=== PATIENT | male | born 1970 | race Caucasian/White ===

== ENCOUNTER → 2017-08-24 10:03 | Outpatient (CLI) | payer MEDICAID ==
[2010-11-07 20:33] VITALS: BMI 28.5
[~2017-08-24 10:03] MED LIST: CHANTIX 1 MG TAB1 MG PO; HYZAAR 100-12.51 TAB PO; IBUPROFEN400 MG PO; KLONOPIN1 MG PO; MELATONIN10 M1 PO; MULTI-DAY VITAM1 TAB PO; NAPROSYN500 MG PO; PERCOCET 10/3251 TA1 PO; TYLENOL W/CODEI1 TAB PO; ULTRAM50 MG PO; ZANAFLEX4 MG PO
[2017-09-24 08:06] VITALS: BMI 27.6
== END | disposition home or self-care (01) ==
LOC: D.RAD 10:03
DX: M25.512 Pain in left shoulder (principal)

== ENCOUNTER 2017-09-24 07:20 | Day surgery (SDC) | payer MEDICAID ==
[2017-09-23 15:10] LABS: HEMATOCRIT 38.5 % (42.0-54.0); HEMOGLOBIN 13.3 g/dL (13.5-17.5); MCH 31.5 pg (26.0-34.0); MCHC 34.5 g/dL (31.0-37.0); MCV 91.2 fL (80.0-100.0); MEAN PLATELET VOLUME 11.6 fL (7.4-10.4); RBC 4.22 10x6/uL (4.20-6.10); RDW 13.3 % (11.5-14.5); WBC 8.5 10x3/uL (4.8-10.8)
[~2017-09-24] VITALS: Ht 177.8 cm; Wt 87.1 kg
--- NOTE | ~2017-09-24 | OP ---
PATIENT NAME: KAMILLA IZAGUIRRE MEDICAL RECORD: [id number] :66 [facility] DATE: SURGEON: NURIS FOWLER MD DATE OF OPERATION: 09/24/2017 PREOPERATIVE DIAGNOSES: 1. 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 2. Impingement syndrome. POSTOPERATIVE DIAGNOSES: 1. 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 2. Impingement syndrome. PROCEDURES: 1. Arthroscopic Bankart repair, left shoulder. 2. Subacromial decompression with acromioplasty and bursectomy. SURGEON: Nuris Fowler MD ANESTHESIA: General. INTRAOPERATIVE COMPLICATIONS: None. SUMMARY OF PATHOLOGIC FINDINGS: The patient had mostly an ALPSA type lesion with a small component that was bony. The patient also had a Hill-Sachs lesion with full thickness chondral defect in the posterior aspect of the humeral head. There was no rotator cuff tearing that I could see on either side of the joint. There were some attritional changes from what appeared to be a longstanding impingement. INDICATIONS: The patient is a 47-year-old gentleman who had sustained a shoulder dislocation while playing with his kids. Nonoperative management failed to return his shoulder stability. MRIs were taken and given the Bankart lesion, decision was made to carry on with Bankart repair. OPERATIVE SUMMARY IN DETAIL: After obtaining the appropriate preoperative orthopedic surgery consent as well as anesthetic consultation, evaluation and clearance, the patient was brought to the operating room and placed on operating table in supine position. After general laryngeal mask was administered, the patient was placed in the right lateral decubitus position. All pressure points were well padded to include down leg peroneal pad as well as axillary roll. The patient was held firmly to the operating table using the vacuum pack suction system. Left upper extremity and shoulder were then prepped and draped in routine sterile fashion. The arm was held in the Arthrex traction boom at 30 degrees of forward flexion, 30 degrees of abduction, and 10 pounds of traction laterally. Arthroscopy was established in the glenohumeral joint from posterior portal. Anterior portal was established in the anterior safe interval. Diagnostic arthroscopy did reveal the patient to have the Bankart lesion as described above. Combination of the resector as well as the arthroscopic periosteal elevator was utilized to tease the anterior labrum off the neck and mobilized this. The Arthrex percutaneous system was then used. The first drill hole was made at approximately the 8 to 8:30 position. FiberTape was then looped around the labrum with portions of the capsule using the arthroscopic lasso from Arthrex. A 2.9 PushLock was then inserted in the lowest portion with a good labral repair with capsular plication. The first was at the 7:30 OPERATIVE REPORT [id number] ZINAKAMILLA position. The same thing was repeated 2 more times at the 8:30 and 9 o'clock position while imbricating the capsule and fixing the labrum with a good bumper effect. Having completed this, a stitch was placed through the middle glenohumeral ligament and then through the tissue just beneath the labrum. A #2 FiberWire was then tied for further capsular imbrication. Having completed this, attention was turned to the subacromial space. While in the subacromial space, the coracoacromial ligament was noted to have excoriation. Undersurface of the acromion was then denuded of all soft tissue and the coracoacromial ligament was released. A 5-0 barrel bur was used to perform acromioplasty at the level of acromioclavicular joint. Next, attention was turned to the rotator cuff. Some attritional rotator cuff changes were noted, but no full thickness tearing was seen. At this point, arthroscopy portals were closed in routine interrupted fashion using 4-0 Prolene. Sterile dressings were applied. The patient was awakened and taken to recovery room in stable condition. All final needle and sponge counts were correct. TRANSINT:[id number] Voice Confirmation ID: [id number] DOCUMENT ID: [id number] JANETH MARTINEZ, NURIS GIBSON at 0802 CC: [id number] DICTATION DATE: 09/24/17 1112 MARINE STE[employer] FITTER HELPER: 09/24/17 1233 [facility] 09/24/17 [id number] [place] [address]
[~2017-09-24 07:20] MED LIST changes: -PERCOCET 10/3251 TA1 PO
[2017-09-24 08:06] VITALS: BP 137/90; Ht 177.8 cm; Wt 87.1 kg
[2017-09-24] MEDS ORDERED: PERCOCET 10/3251 TA1 PO (11:02)
== END 2017-09-24 13:20 | disposition home or self-care (01) ==
LOC: D.OPS 07:20 → D.PAN 10:15 → D.OPS 11:10 → D.PAN 12:00 → D.OPS 12:00
PROVIDERS: Anesthesiology
DX: M25.312 Other instability, left shoulder (principal); M75.42 Impingement syndrome of left shoulder; Z01.812 Encounter for preprocedural laboratory examination

== ENCOUNTER 2018-03-14 18:56 | Emergency (ER) | payer MEDICAID ==
[~2018-03-14] VITALS: Ht 180.3 cm; Wt 81.4 kg
[~2018-03-14 18:56] MED LIST changes: +PERCOCET 10/3251 TA1 PO
[2018-03-14 19:00] VITALS: Ht 180.3 cm; Wt 81.4 kg
[2018-03-14] MEDS ORDERED: FEXOFENADINE H180 MG PO (19:23)
[2018-03-14] MEDS ORDERED: ZOLOFT100 MG PO (19:23)
[2018-03-14 19:40] LABS: BASOPHILS 0.3 % (0-2); EOSINOPHILS 1.7 % (0-7); HEMATOCRIT 39.8 % (42.0-54.0); HEMOGLOBIN 13.7 g/dL (13.5-17.5); IMMATURE GRANULOCYTES 0.3 % (0-5); LYMPHOCYTES 30.4 % (15-50); MCH 32.2 pg (26.0-34.0); MCHC 34.4 g/dL (31.0-37.0); MCV 93.6 fL (80.0-100.0); MEAN PLATELET VOLUME 11.5 fL (7.4-10.4); MONOCYTES 9.6 % (2-11); NEUTROPHILS 57.7 % (40-80); PLATELET COUNT 209 10x3/uL (130-400); RBC 4.25 10x6/uL (4.20-6.10); RDW 13.2 % (11.5-14.5); WBC 11.4 10x3/uL (4.8-10.8)
[2018-03-14 19:53] LABS: ALBUMIN 4.1 g/dL (3.4-5.0); ALKALINE PHOSPHATASE 69 U/L (46-116); ALT (SGPT) 26 U/L (10-68); BILIRUBIN - TOTAL 0.28 mg/dL (0.2-1.3); CALC OSMOLALITY 280 mosm/kg (275-300); CALCIUM 8.7 mg/dL (8.5-10.1); CHLORIDE - SERUM 102 mmol/L (98-107); CREATININE - SERUM 0.8 mg/dL (0.6-1.3); GLUCOSE 110 mg/dL (74-106); POTASSIUM - SERUM 3.4 mmol/L (3.5-5.1); PROTEIN - SERUM 7.3 g/dL (6.4-8.2); SODIUM 140 mmol/L (136-145); UREA NITROGEN 15 mg/dL (7-18); eGFR NON AFRICAN AMERICAN > 90 mL/min (90-120)
[2018-03-14 20:06] LABS: AMYLASE - SERUM 94 U/L (25-115); CKMB 1.2 U/L (0.0-3.6); CREATINE KINASE 128 UL (21-232); LIPASE 450 U/L (73-393); PRO BNP 40 pg/mL (0-125); THYROID STIMULATING HORMONE 0.92 uIU/mL (0.36-3.74)
[2018-03-14 20:13] LABS: TROPONIN-I < 0.017 ng/mL (0.000-0.060)
[2018-03-14 22:19] VITALS: BP 132/77
== END 2018-03-14 21:21 | disposition home or self-care (01) ==
LOC: D.ER 18:56
PROVIDERS: Family Medicine
DX: R55 Syncope and collapse (principal); R06.00 Dyspnea, unspecified; R61 Generalized hyperhidrosis; R11.0 Nausea; R53.1 Weakness; R42 Dizziness and giddiness; I10 Essential (primary) hypertension; F17.200 Nicotine dependence, unspecified, uncomplicated

== ENCOUNTER → 2018-04-28 14:06 | Outpatient (CLI) | payer MEDICAID ==
[2018-03-14 19:00] VITALS: BMI 25.0
[~2018-04-28 14:06] MED LIST changes: +FEXOFENADINE H180 MG PO; +ZOLOFT100 MG PO
== END | disposition home or self-care (01) ==
LOC: D.MRI 14:06
DX: M25.512 Pain in left shoulder (principal)

== ENCOUNTER 2018-07-05 13:15 | Emergency (ER) | payer MEDICAID ==
[~2018-07-05] VITALS: Ht 180.3 cm; Wt 79.5 kg
[2018-07-05 13:28] VITALS: BP 111/60; Ht 180.3 cm; Wt 79.5 kg
[2018-07-05] MEDS ORDERED: XOFLUZA40 MG PO (15:49)
== END 2018-07-05 16:07 | disposition home or self-care (01) ==
LOC: D.ER 13:15
DX: J11.1 Influenza due to unidentified influenza virus with other respiratory manifestations (principal); R05 Cough; R50.9 Fever, unspecified; I10 Essential (primary) hypertension; F17.200 Nicotine dependence, unspecified, uncomplicated

== ENCOUNTER 2018-07-08 14:29 | Inpatient (IN) | payer MEDICAID ==
[~2018-07-08] VITALS: Ht 180.3 cm; Wt 80.0 kg
[~2018-07-08 14:29] MED LIST changes: +XOFLUZA40 MG PO
[2018-07-08] MEDS ORDERED: TAMIFLU75 MG PO (14:36)
[2018-07-08 15:24] LABS: BASOPHILS 0.1 % (0-2); EOSINOPHILS 0.7 % (0-7); HEMATOCRIT 35.6 % (42.0-54.0); HEMOGLOBIN 12.3 g/dL (13.5-17.5); IMMATURE GRANULOCYTES 0.5 % (0-5); LYMPHOCYTES 5.1 % (15-50); MCH 31.5 pg (26.0-34.0); MCHC 34.6 g/dL (31.0-37.0); MONOCYTES 5.8 % (2-11); NEUTROPHILS 87.8 % (40-80); RBC 3.91 10x6/uL (4.20-6.10); RDW 12.9 % (11.5-14.5); WBC 18.3 10x3/uL (4.8-10.8)
[2018-07-08 15:29] LABS: PLATELET COUNT 257 10x3/uL (130-400)
[2018-07-08 15:38] LABS: ALBUMIN 2.8 g/dL (3.4-5.0); ALKALINE PHOSPHATASE 91 U/L (46-116); ALT (SGPT) 25 U/L (10-68); BILIRUBIN - TOTAL 0.59 mg/dL (0.2-1.3); CALC OSMOLALITY 284 mosm/kg (275-300); CALCIUM 8.3 mg/dL (8.5-10.1); CARBON DIOXIDE 25.5 mmol/L (21.0-32.0); CHLORIDE - SERUM 104 mmol/L (98-107); CREATININE - SERUM 0.7 mg/dL (0.6-1.3); GLUCOSE 124 mg/dL (74-106); POTASSIUM - SERUM 3.6 mmol/L (3.5-5.1); PROTEIN - SERUM 6.3 g/dL (6.4-8.2); SODIUM 143 mmol/L (136-145); UREA NITROGEN 9 mg/dL (7-18); eGFR NON AFRICAN AMERICAN > 90 mL/min (90-120)
--- NOTE | 2018-07-08 19:01 | MORECARE ---
CASE MANAGEMENT DISCHARGE SUMMARY PATIENT: KAMILLA IZAGUIRRE UNIT: [id number] ADM DATE: 07/08/18 AGE: 47 : [birth year] SEX: M ROOM/BED: D.E16 AUTHOR: JAZMINE PARKER PHYSICIAN: REFERRING PHYSICIAN: TOR GAVIN MD DATE OF SERVICE: 07/08/18 Discharge Plan Patient Name: KAMILLA IZAGUIRRE [facility] [facility] 1970 Planned Disposition: Home Anticipated Discharge Date: 07/12/18 Discharge Date: Expected LOS: 4 Initial Reviewer: [email or web address] Initial Review Date: 07/08/2018 Generated: 07/08/18 8:01 pm DCPIA - Discharge Planning Initial Assessment Updated by [email or web address]: Nerissa Hernandez on 07/08/18 7:00 pm * Is the patient Alert and Oriented? Yes * How many steps to enter\exit or inside your home? * PCP Dr. Frye * Pharmacy [facility] * Preadmission Environment Home with Family * ADLs Independent * Equipment None * List name and contact numbers for known caregivers / representatives who currently or will assist patient after discharge: Cheyenne Izaguirre - [phone] * Verbal permission to speak to the caregivers and representatives has been obtained from the patient. Yes * Community resources currently utilized None * Additional services required to return to the preadmission environment? No * Can the patient safely return to the preadmission environment? Yes * Has this patient been hospitalized within the prior 30 days at any hospital? No Patient Name: KAMILLA IZAGUIRRE Page [phone] at 1901 All edits/amendments must be made on the electronic document DICTATION DATE: 07/08/181899 BATCHING OPERATOR: SAGE 07/08/181899 RPT#: [id number] DC DATE: STATUS: ADM IN [facility] [address] [place] [address] END OF REPORT
--- NOTE | 2018-07-08 19:08 | MORECARE ---
CASE MANAGEMENT DISCHARGE SUMMARY PATIENT: KAMILLA IZAGUIRRE UNIT: [id number] ADM DATE: 07/08/18 AGE: 47 : 66 SEX: M ROOM/BED: D.E16 AUTHOR: ELENADOC PHYSICIAN: REFERRING PHYSICIAN: TOR GAVIN MD DATE OF SERVICE: 07/08/18 Discharge Plan Patient Name: KAMILLA IZAGUIRRE Facility: [facility]:[place] : 1970 Planned Disposition: Home Anticipated Discharge Date: 07/12/18 Discharge Date: Expected LOS: 4 Initial Reviewer: [email or web address] Initial Review Date: 07/08/2018 Generated: 07/08/18 8:08 pm DCP- Discharge Planning Updated by [email or web address]: Nerissa Hernandez on 07/08/18 6:[address] Patient Name: KAMILLA IZAGUIRRE Admission Status: ER Accout number: [id number] Admission Date: 07-08-2018 : 1970 Admission Diagnosis: Attending: TOR GAVIN Current LOS: 1 Anticipated DC Date: 07-12-2018 Planned Disposition: Home Primary Insurance: [employer] [place] [employer] [place] Discharge Planning Comments: CM met with patient to complete initial dc planning assessment. CM educated patient on the CM role and verbal consent given by patient to complete assessment. Patient lives at home with his and children. He is independent in is care at home. At discharge patient plans to return home with his family and feels this is a safe discharge. CM discussed availability of home health, rehab services, and medical equipment. Patient denied known discharge needs at this time. CM will continue to follow and will assist as needed with dc plans/needs. Operations Support Manager: Nerissa Hernandez RN, [facility] DCPIA - Discharge Planning Initial Assessment Updated by [email or web address]: Nerissa Hernandez on 07/08/18 7:00 pm * Is the patient Alert and Oriented? Yes * How many steps to enter\exit or inside your home? * PCP Dr. Frye * Pharmacy [facility] [employer] [facility] * Preadmission Environment Home with Family * ADLs Independent * Equipment None * List name and contact numbers for known caregivers / representatives who currently or will assist patient after discharge: Cheyenne Izaguirre - [phone] * Verbal permission to speak to the caregivers and representatives has been obtained from the patient. Yes * Community resources currently utilized None * Additional services required to return to the preadmission environment? No * Can the patient safely return to the preadmission environment? Yes * Has this patient been hospitalized within the prior 30 days at any hospital? No Last DP export: 07/08/18 6:01 pm Patient Name: KAMILLA IZAGUIRRE Page [phone] at 1908 All edits/amendments must be made on the electronic document DICTATION DATE: 07/08/181907 RN PACU: SAGE 07/08/181907 RPT#: [id number] DC DATE: STATUS: ADM IN [facility] [address] [place] [address] END OF REPORT
[2018-07-08 21:34] VITALS: BP 153/82; BMI 24.4
--- NOTE | 2018-07-08 21:45 | NUR ---
PATIENT ARRIVED FROM ER VIA WHEELCHAIR. PATIENT IS ALERT AND ORIENTED. RESPIRATIONS ARE EVEN AND UNLABORED. NO S/S OF DISTRESS. NO C/O PAIN. DENIES NEEDS AT THIS TIME. PATIENT SHOWERED. IS BRING HIM FOOD. CALL LIGHT WITHIN REACH. CALL LIGHT WITHIN REACH. WILL CPOC.
[2018-07-09] VITALS: BP 145/82
--- NOTE | 2018-07-09 02:47 | NUR ---
PATIENT RESTING COMFORTABLY IN BED. RESPIRATIONS ARE EVEN AND UNLABORED. PATIENT REMAINS ON 2L NC. NO S/S OF DISTRESS. NO C/O PAIN. CALL LIGHT WITHIN REACH. WILL CPOC.
[2018-07-09 04:00] VITALS: BP 131/84
[2018-07-09 05:01] LABS: BASOPHILS 0.1 % (0-2); EOSINOPHILS 0 % (0-7); HEMATOCRIT 33.9 % (42.0-54.0); HEMOGLOBIN 11.6 g/dL (13.5-17.5); IMMATURE GRANULOCYTES 0.6 % (0-5); LYMPHOCYTES 2.7 % (15-50); MCHC 34.2 g/dL (31.0-37.0); MCV 90.6 fL (80.0-100.0); MEAN PLATELET VOLUME 10.9 fL (7.4-10.4); MONOCYTES 3.2 % (2-11); NEUTROPHILS 93.4 % (40-80); PLATELET COUNT 283 10x3/uL (130-400); RBC 3.74 10x6/uL (4.20-6.10); WBC 18.2 10x3/uL (4.8-10.8)
[2018-07-09 05:20] LABS: ALBUMIN 2.3 g/dL (3.4-5.0); ALKALINE PHOSPHATASE 89 U/L (46-116); ALT (SGPT) 22 U/L (10-68); BILIRUBIN - TOTAL 0.16 mg/dL (0.2-1.3); CALCIUM 8.8 mg/dL (8.5-10.1); CARBON DIOXIDE 28.6 mmol/L (21.0-32.0); CHLORIDE - SERUM 104 mmol/L (98-107); MAGNESIUM - SERUM 2.3 mg/dL (1.8-2.4); POTASSIUM - SERUM 3.4 mmol/L (3.5-5.1); SODIUM 144 mmol/L (136-145)
[2018-07-09 05:27] LABS: CALC OSMOLALITY 293 mosm/kg (275-300); CREATININE - SERUM 0.9 mg/dL (0.6-1.3); GLUCOSE 212 mg/dL (74-106); UREA NITROGEN 14 mg/dL (7-18); eGFR NON AFRICAN AMERICAN > 90 mL/min (90-120)
--- NOTE | 2018-07-09 08:00 | NUR ---
AM ROUNDS COMPLETED. AAOX4, VSS, BUT PT C/O OF HEADACHE. PO TYLENOL GIVEN AT THIS TIME FOR PAIN. NO S/S OF DISTRESS. RR UNLABORED. PT HAS BEEN HAVING FREQUENT COUGH ALL MORNING. STATE PT LEGS IS SWOLLEN. ASSESED PT LEGS NO S/S OF EDEMA. PEDAL PULSES PALP. PT ON DROPLET ISOLATION. CL IN REACH, BED IN LOW. SR UPX2.
--- NOTE | 2018-07-09 09:05 | NUR ---
REASSESED PT PAIN. PT STATES NOTHING HAS CHANGED, THAT HIS PAIN IS STILL THESAME. BUT DENIES ANY FURTHER NEEDS AT THIS TIME. CL IN REACH, BED IN LOW. WILL CTM.
[2018-07-09 09:11] VITALS: BP 143/87
--- NOTE | 2018-07-09 10:00 | NUR ---
PT DOXYCYCLINE NOT IN PYXIX AT THIS TIME. NOTIFIED PHARMACY.
--- NOTE | 2018-07-09 10:08 | NUR ---
PT C/O GENERALIZED PAIN. IV 4MG MORPHIN GIVEN AT THIS TIME. WILL CTM. CL IN REACH, BED IN LOW.
[2018-07-09 11:42] VITALS: BP 139/77
--- NOTE | 2018-07-09 15:12 | NUR ---
PT C/O HEADACHES, PO PRN MOTRIN GIVEN AT THIS TIME. WILL CTM. CL IN REACH, BED IN LOW.
[2018-07-09 15:49] VITALS: BP 145/78
--- NOTE | 2018-07-09 18:00 | NUR ---
PT C/O RASH ON HIS LEFT ARM. ASSESED THE SITE. PT HAVE A REDDENED AREA PROXIMAL AND DISTAL TO IV SITE ON LEFT AC. CALLED DR GAVIN. DR ORDERED 25MG BENADRYL. BENADRYL GIVEN AT THIS TIME. WILL CTM, CL IN REACH, BED IN LOW, SR UP X2.
--- NOTE | 2018-07-09 20:10 | NUR ---
RESUMING PT CARE. PT IS ALERT LAYING IN BED. AT BEDSIDE. NO C/O VOICED AT THIS TIME. PT HAS A IV IN THE LEFT AC THAT IS SALINE LOCK. BED IN LOW POSITON WITH CALL LIGHT IN REACH. WILL CONTINUE TO MONITOR PT AND FOLLOW PLAN OF CARE.
--- NOTE | 2018-07-09 23:15 | NUR ---
RESPIRATORY WAS CALLED DUE TO PT LOW SAT IN THE 70'S. PT IS ALERT AND TALKING. AND COUGHING VERY HARD. RESPIRATORY IN ROOM ACCESSING PATIENT.
--- NOTE | 2018-07-09 23:59 | NUR ---
ICU HAS BEEN CALLED TO ASSESS PATIENT FOR LOW O2 STATUS. RESPIRATORY IN ROOM AND OBTAINING AN ABG.
[2018-07-10] VITALS (22 sets, daily range): BP systolic 128–163; BP diastolic 60–98
--- NOTE | 2018-07-10 00:55 | NUR ---
PT HAVING TROUBLE BREATHING AND I WENT TO ASSESS PATIENT AND DECIDED WE NEEDED TO GET A BLOOD GAS ON PT WITH A SP02 OF 74% PLACED ON 15LPM HIGH FLOW NASAL CANNULA AND PATIENTS SP02 INCREASED TO 88-89%.
--- NOTE | 2018-07-10 01:00 | NUR ---
WAS CALLED AND NOTIFIED OF PT OXYGEN SATURATION DROPPED IN THE 70'S AND 80'S AND THAT PT IN ON 15 LITERS OF OXYGEN HIGH FLOW AND IS HAVING A HARD TIME BREATHING. DR. LESLYE WU PT TO ICU. ICU NURSES WAS IN ROOM GETTING PT READY FOR TRANSFER.
--- NOTE | 2018-07-10 01:13 | NUR ---
PATIENT RECEIVED ON THE UNIT AND INTO RM 2309. DROPLET PRECAUTIONS OBSERVED AND ISOLATION CART IN PLACE OUTSIDE THE PATIENTS DOOR. PATIENT IS A&O X4. IS IN THE ROOM AND PATIENT AND EDUCATED ABOUT DROPLET PRECAUTIONS AND THE NEED TO WEAR A MASK, GOWN, AND GLOVES. PATIENT AND DEMONSTRATE UNDERSTANDING VIA TEACHABCK METHOD. PATIENT IS CONNECTED TO ALL STANDARD ICU MONITORS WITH ALL ALARMS SET, VERIFIED, AND AUDIABLE. BED IS IN THE LOW POSITION WITH SIDERAILS X3 AND THE CALL LIGHT WITHIN REACH. THE PATIENT HAS NO QUESTIONS OR CONCERNS AT THIS TIME.
--- NOTE | 2018-07-10 03:58 | NUR ---
THE PATIENT APPEARS TO BE SLEEPING. BED IN THE LOW POSITION WITH SIDERAILS X3 AND CALL LIGHT WITHIN REACH.
[2018-07-10 06:44] LABS: HEMOGLOBIN 10.7 g/dL (13.5-17.5); MCH 30.6 pg (26.0-34.0); MCHC 33.4 g/dL (31.0-37.0); MCV 91.4 fL (80.0-100.0); MEAN PLATELET VOLUME 10.6 fL (7.4-10.4); PLATELET COUNT 273 10x3/uL (130-400); RDW 13.4 % (11.5-14.5); WBC 21.5 10x3/uL (4.8-10.8)
[2018-07-10 06:57] LABS: ALKALINE PHOSPHATASE 107 U/L (46-116); BILIRUBIN - TOTAL 0.28 mg/dL (0.2-1.3); CALCIUM 8.1 mg/dL (8.5-10.1); CARBON DIOXIDE 25.1 mmol/L (21.0-32.0); CHLORIDE - SERUM 104 mmol/L (98-107); CREATININE - SERUM 0.7 mg/dL (0.6-1.3); POTASSIUM - SERUM 3.2 mmol/L (3.5-5.1); PROTEIN - SERUM 6.4 g/dL (6.4-8.2); SODIUM 142 mmol/L (136-145); eGFR NON AFRICAN AMERICAN > 90 mL/min (90-120)
[2018-07-10 07:01] LABS: ALT (SGPT) 44 U/L (10-68); CALC OSMOLALITY 283 mosm/kg (275-300); GLUCOSE 132 mg/dL (74-106); MAGNESIUM - SERUM 1.7 mg/dL (1.8-2.4); UREA NITROGEN 10 mg/dL (7-18)
--- NOTE | 2018-07-10 08:21 | NUR ---
LYING IN BED ON BIPAP AT THIS TIME. NO ACUTE DISTRESS NOTED. AT BEDSIDE. DENIES ANY NEEDS. WILL CONTINUE PLAN OF CARE.
[2018-07-10 09:20] LABS: LYMPHOCYTES 6 % (15-50); MONOCYTES 4 % (2-11); NEUTROPHILS 80 % (40-80); PLATELET ESTIMATE NORMAL
--- NOTE | 2018-07-10 10:02 | NUR ---
NO ACUTE DISTRESS NOTED. PY LYING IN BED ON BIPAP, UNABLE TO TOLERATE HIGH FLOW NASAL CANNULA WAS ATTEMPTED THIS MORNING WITH PHYSICIAN AND RT AT BEDSIDE. PT DENIES ANY NEEDS. CALL LIGHT IN REACH. WILL CONTINUE PLAN OF CARE.
[2018-07-10 10:28] LABS: INR 1.07 (0.85-1.17); PROTIME 13.4 SECONDS (11.6-15.0)
--- NOTE | 2018-07-10 11:32 | NUR ---
SPOKE WITH DR GAVIN REGARDING ELECTROLYTES AND IF HE WANTS ELECTROLYTE PROTOCOL, HE STATED HE WOULD REVIEW THE LABS AND DECIDE THEN.
--- NOTE | 2018-07-10 12:36 | NUR ---
PINA PLACED AT THIS TIME PER DR TREVINO ORDERS FOR ACCURATE I&O, 16F, LIGHT YELLOW URINE IN TO CLOSED CONTAINER. AT BEDSIDE SPEAKING WITH DR TREVINO. WILL CONTINUE PLAN OF CARE.
--- NOTE | 2018-07-10 14:06 | NUR ---
CONTINENT BOWEL MOVEMENT NOTED AT THIS TIME VIA BEDPAN, LARGE IN SIZE FORMED BROWN. TOSHIA CARE PROVIDED. PT REPOSITIONED SELF. AT BEDSIDE. NO ACUTE DISTRESS NOTED. WILL CONTINUE PLAN OF CARE.
--- NOTE | 2018-07-10 15:05 | NUR ---
PT AND PTS HAS RECIEVED UPDATES FROM DR TREVINO, ALL QUESTIONS, CONCERNS ADRESSED. NO ACUTE DISTRESS NOTED. WILL CONTINUE PLAN OF CARE.
--- NOTE | 2018-07-10 16:17 | NUR ---
PER PT, "THE ONLY VISITORS I WANT ARE MY AND MY BROTHER." SIGN PLACED AT PTS DOOR STATING NO VISITORS PER PT. AT BEDSIDE AND IS AWARE. NO ACUTE DISTRESS NOTED. WILL CONTINUE PLAN OF CARE.
--- NOTE | 2018-07-10 16:31 | NUR ---
PER DR TREVINO, RESTART PTS ZOLOFT PO. OKAY TO REMOVE BIPAP FOR A FEW SECONDS TO GIVE. WILL CONTINUE PLAN OF CARE.
--- NOTE | 2018-07-10 18:44 | NUR ---
PER DR TREVINO, OKAY TO TAKE OFF BIPAP FOR JUST A FEW MIN AT 6L HIGH FLOW NC FOR MEDS AND SIPS OF WATER LONG NURSE AND RT ARE IN ROOM.
[2018-07-11] VITALS (24 sets, daily range): BP systolic 127–150; BP diastolic 72–93
--- NOTE | 2018-07-11 07:19 | NUR ---
UP IN BED AWAKE. DENIES ANY NEEDS. AT BEDSIDE. NO ACUTE DISTRESS NOTED. BIPAP IN PLACE AT 55%, OXYGEN SATURATION TRENDING ABOVE 95%. WILL CONTINUE PLAN OF CARE.
[2018-07-11 07:48] LABS: BASOPHILS 0.1 % (0-2); EOSINOPHILS 0.9 % (0-7); HEMOGLOBIN 10.9 g/dL (13.5-17.5); IMMATURE GRANULOCYTES 1.4 % (0-5); MCH 31.1 pg (26.0-34.0); MCHC 34.1 g/dL (31.0-37.0); MCV 91.4 fL (80.0-100.0); MEAN PLATELET VOLUME 10.2 fL (7.4-10.4); MONOCYTES 3.9 % (2-11); NEUTROPHILS 86.7 % (40-80); PLATELET COUNT 283 10x3/uL (130-400); RDW 13.4 % (11.5-14.5); WBC 17.6 10x3/uL (4.8-10.8)
[2018-07-11 08:10] LABS: CALC OSMOLALITY 286 mosm/kg (275-300); CALCIUM 8.7 mg/dL (8.5-10.1); CARBON DIOXIDE 27.9 mmol/L (21.0-32.0); CHLORIDE - SERUM 103 mmol/L (98-107); CREATININE - SERUM 0.6 mg/dL (0.6-1.3); GLUCOSE 131 mg/dL (74-106); POTASSIUM - SERUM 3.2 mmol/L (3.5-5.1); SODIUM 143 mmol/L (136-145); UREA NITROGEN 13 mg/dL (7-18); eGFR NON AFRICAN AMERICAN > 90 mL/min (90-120)
--- NOTE | 2018-07-11 09:19 | NUR ---
UP IN BED AWAKE AT THIS TIME WATCHING TV. DENIES ANY NEEDS. CALL LIGHT IN REACH. WILL CONTINUE PLAN OF CARE.
--- NOTE | 2018-07-11 11:17 | NUR ---
ASKED DR TREVINO IF HE WANTED PT TO HAVE SCD, HE STATED, NO, I WILL ORDER HEPARIN SUBQ. ALSO NOTED PT TO HAVE EPISODES X 3 OF DIARRHEA, GREEN-BROWN LIQUID VA BEDPAN. TOSHIA CARE AND PINA CARE PROVIDED. NO ACUTE DISTRESS NOTED. WILL CONTINUE PLAN OF CARE.
--- NOTE | 2018-07-11 13:16 | NUR ---
UP IN BED ON BIPAP, AND VISITORS AT BEDSIDE. PT DENIES ANY NEEDS. PT REPOSITIONS SELF INDEPENDENTLY. NO ACUTE DISTRESS NOTED. JACINTO LCONTINUE PLAN OF CARE.
--- NOTE | 2018-07-11 15:15 | NUR ---
UP IN BED ON HIGH FLOW NASAL CANNULA AT 6L VISITING WITH . DENIES ANY NEEDS. OXYGEN SATURATION CURRENTLY TRENDING ABOVE 92%. NO ACUTE DISTRESS NOTED. WILL CONTINUE PLAN OF CARE.
[2018-07-11 17:01] LABS: % SATURATION 10 % (15-55); IRON 19 ug/dl (35-150); TOTAL IRON BIND CAPACITY 185 ug/dl (260-445); UNSAT IRON BIND CAPACITY 166 ug/dl (150-375)
--- NOTE | 2018-07-11 17:51 | NUR ---
DR TREVINO NOTIFIED OF SPUTUM COLTURE CURRENT RESULT, NO NEW ORDERS RECIEVED.
--- NOTE | 2018-07-11 19:00 | NUR ---
ASSESSMENT PER FLOW SHEET, AT BEDSIDE, SON AT BEDSIDE, TEACHING PER EDUCATION RECORD. PT DENIES BEING IN PAIN. O2 SAT'S ARE DECREASING SO BIPAP BACK IN USE. PT IS GRANTING DR. ELENA AND DR. SALVADOR PERMISSION TO LOOK IN HIS CHART THEY NOT ONLY WORK TOGETHER, THEY ARE ALSO FRIENDS AND HE WANTS THEM TO HAVE THE FREEDOM TO LOOK IN HIS CHART WITHOUT FEAR OF HIPPA VIOLATIONS. PT ALSO REQUESTING LOSARTAN AND KEISHA D BE RESTARTED WELL AND WILL BE PASSED ON TO THE DAY SHIFT RN TOMORROW
[2018-07-12] VITALS (24 sets, daily range): BP systolic 98–154; BP diastolic 3–88; Ht 180.3 cm; Wt 80.0 kg
--- NOTE | 2018-07-12 07:00 | NUR ---
PATIENT RESTING IN BED ON BIPAP WITH STABLE VSS. AWAKE AND ALERT. WILL CONTINUE TO MONITOR
--- NOTE | 2018-07-12 08:00 | NUR ---
TOOK BIPAP OFF AND PLACED HIGH FLOW NC ON PT FOR BREAKFAST AT 6L/MIN
[2018-07-12 08:26] LABS: CALC OSMOLALITY 288 mosm/kg (275-300); CALCIUM 8.5 mg/dL (8.5-10.1); CHLORIDE - SERUM 106 mmol/L (98-107); CREATININE - SERUM 0.6 mg/dL (0.6-1.3); GLUCOSE 158 mg/dL (74-106); SODIUM 143 mmol/L (136-145); UREA NITROGEN 15 mg/dL (7-18); eGFR NON AFRICAN AMERICAN > 90 mL/min (90-120)
[2018-07-12 08:27] LABS: POTASSIUM - SERUM 4.1 mmol/L (3.5-5.1)
[2018-07-12 08:40] LABS: HEMOGLOBIN 10.5 g/dL (13.5-17.5); MCHC 33.9 g/dL (31.0-37.0); MCV 91.4 fL (80.0-100.0); MEAN PLATELET VOLUME 10.1 fL (7.4-10.4); PLATELET COUNT 314 10x3/uL (130-400); RBC 3.39 10x6/uL (4.20-6.10); RDW 13.3 % (11.5-14.5); WBC 21.5 10x3/uL (4.8-10.8)
--- NOTE | 2018-07-12 09:00 | NUR ---
PT SATURATION DROPPED TO 80%. TURNED O2 UP TO 10L/MIN PER HIGH FLOW. 02 SAT JUMPED BACK UP TO 94%. WILL CONTINUE TO MONITOR.
[2018-07-12 10:04] LABS: EOSINOPHILS 1 % (0-7); LYMPHOCYTES 4 % (15-50); MONOCYTES 2 % (2-11); NEUTROPHILS 88 % (40-80); PLATELET ESTIMATE NORMAL
--- NOTE | 2018-07-12 10:55 | EC ---
PATIENT:KAMILLA IZAGUIRRE DATE OF SERVICE: 07/08/18 SEX: M MEDICAL RECORD: [id number] DATE OF : [birth year] LOCATION:[facility] AGE OF PATIENT: 47 ADMISSION DATE: 07/08/18 REFERRING PHYSICIAN: INTERPRETING PHYSICIAN: TAWANDA MAYNARD MD ECHOCARDIOGRAM REPORT ECHO CHARGES 4 ECHO COMPLETE Date: 07/10/18 CLINICAL DIAGNOSIS: HYPOXIA ECHOCARDIOGRAPHIC MEASUREMENTS (adult normal given) AC root (d.<3.7cm) 3.2 cm LV Septum d (<1.2 cm> 1.0 cm Valve Excursion 1.8 cm LV Septum (systole) 1.1 cm Left Atria (s.<4.0cm> 3.3 cm LVPW d(<1.2cm) 1.2 cm RV (d.<2.3cm) 2.3 cm LVPW (sytole) 1.3 cm LV diastole(<5.6CM) 5.4 cm MV E-F(>70mm/sec) cm LV systole 4.8 cm LVOT Diameter 2.0 cm MV exc.(>10mm) cm Est.ejection fraction (50-75%) % DOPPLER: LVIT cm/sec A 95 cm/sec E 94 cm/sec LA cm/sec RVSP 23.4 mmHg LVOT 141 cm/sec AOP1/2T m/s Asc. Ao 170 cm/sec RVOT 90 cm/sec RA cm/sec PA 90 cm/sec AV Gradient Peak 11.5 mmHg AV Mean 6.2 mmHg AV Area 2.2 cm MV Gradient Peak 6.2 mmHg MV Mean 3.1 mmHg MV Area cm COMMENTS: Senior Lead Java Developer: Naz ONEAL Teaching Manager: 1 Dr. Maynard TAPE# PACS Pericardial Effusion N DATE OF SERVICE: 07/10/2018 ECHOCARDIOGRAM DATE OF SERVICE: 07/10/2018 FINDINGS: 1. Left ventricular chamber size is within normal limits. Left ventricular systolic function is normal. Overall ejection fraction estimated at 55%. 2. Left atrium is within normal limits at 4.0 cm. Right atrium and right ECHOCARDIOGRAM REPORT [id number] KAMILLA IZAGUIRRE ventricular chamber sizes are upper limits of normal to mildly dilated. 3. Valvular structures have normal structure and motion. 4. Doppler interrogation reveals only mild mitral regurgitation, mild tricuspid regurgitation, no other valvular insufficiency or stenosis. Pulmonary systolic pressure is estimated at 24 mmHg. 5. No evidence of pericardial effusion or left ventricular thrombus. TRANSINT:[id number] Voice Confirmation ID: [id number] DOCUMENT ID: [id number] TAWANDA MAYNARD MD at 1055 CC: [id number] DICTATION DATE: 07/10/18 1149 CARBON CUTTER: 07/10/18 1228 ADM IN [place] [id number] [place] [id number]
--- NOTE | 2018-07-12 11:00 | NUR ---
OBTAINED ORDER FOR BENEDRYL FOR ITCHING AND REGULAR DIET. PT TOLERATING HIGH FLOW NC AT 11 LITERS/MIN. O2 SAT 92%. WILL CONTINUE TO MONITOR.
--- NOTE | 2018-07-12 13:01 | NUR ---
PT RESTING IN BED WITH STABLE VSS. WILL CONTINUE TO MONITOR
--- NOTE | 2018-07-12 15:21 | NUR ---
PLACED PATIENT BACK ON BIPAP PER REQUEST SO HE CAN REST TILL DINNER. IN ROOM. VSS.
--- NOTE | 2018-07-12 16:45 | NUR ---
REMOVED BIPAP AND PLACED BACK ON HIGH FLOW NC AT 10 L TO EAT DINNER.
--- NOTE | 2018-07-12 18:20 | NUR ---
PATIENT BROKE OUT INTO HIVES. CALLED PHARMACY AND PHARMACIST THINKS IT IS PROBABLY THE ROCEPHIN SINCE ALLERGY TO CEFALEXIN. CALLED DR. SUNSHINE. ANSWERED BUT DID NOT GET CHANCE TO TELL HIM SITUATION BECAUSE HE IN PT ROOM. WILL CALL BACK LATER IF HE DOESNT RETURN PHONE CALL. GAVE PATIENT PRN TRICIAL.
--- NOTE | 2018-07-12 18:43 | NUR ---
OBTAINED ORDERS FROM DR. SUNSHINE TO TOVA ROCEPHIN AND START LEVAQUINN 750MG IV DAILY STARTING TODAY.
--- NOTE | 2018-07-12 19:15 | NUR ---
PT RECEIVED WATCHING TV. AT BEDSIDE IN DROPLET PPE. NO CONCERNS NOTED AT THIS TIME. PT RECEIVED BENYDRL FOR ALLERGIC REACTION TO ABX PRIOR TO SHIFT CHANGE. REDNESS IS DIMINISHING. PT ON HIGH FLOW N/C 10LPM. PT IN DROPLET ISO FOR FLU. VSS. CALL LIGHT IN REACH. WILL CONTINUE TO OBSERVE.
--- NOTE | 2018-07-12 21:28 | NUR ---
PT WITH EYES OPEN WATCHING TV. MEDICATIONS GIVEN PER MAR. PRN IMMODIUM GIVEN. NO S/S OF DISTRESS. PT CONTINUES N/C 10LPM. CALL LIGHT IN REACH. HAS LEFT BEDSIDE. WILL CONTINUE TO OBSERVE.
--- NOTE | 2018-07-12 23:20 | NUR ---
REASSESSMENT COMPLETED, SEE FLOW SHEET. PT AWAKE WATCHING TV. VSS. CALL LIGHT IN REACH. WILL CONTINUE TO OBSERVE.
--- NOTE | 2018-07-12 23:46 | NUR ---
PT SPO2 DROPPING TO 88-91%. PT PLACED ON BIPAP. PT RECEIVED A DRINK OF WATER PRIOR TO APPLICATION OF BIPAP MASK. LIGHTS TURNED OUT PER REQUEST. CALL LIGHT IN REACH. WILL CONTINUE TO OBSERVE.
[2018-07-13] VITALS (22 sets, daily range): BP systolic 129–168; BP diastolic 76–95
[2018-07-13 04:54] LABS: BASOPHILS 0 % (0-2); EOSINOPHILS 0 % (0-7); HEMATOCRIT 31.1 % (42.0-54.0); HEMOGLOBIN 10.3 g/dL (13.5-17.5); IMMATURE GRANULOCYTES 1.4 % (0-5); MCH 30.7 pg (26.0-34.0); MCHC 33.1 g/dL (31.0-37.0); MCV 92.6 fL (80.0-100.0); MEAN PLATELET VOLUME 10.6 fL (7.4-10.4); MONOCYTES 3.9 % (2-11); NEUTROPHILS 90.7 % (40-80); PLATELET COUNT 378 10x3/uL (130-400); RBC 3.36 10x6/uL (4.20-6.10); RDW 13.2 % (11.5-14.5); WBC 23.8 10x3/uL (4.8-10.8)
[2018-07-13 04:59] LABS: CALC OSMOLALITY 287 mosm/kg (275-300); CALCIUM 7.9 mg/dL (8.5-10.1); CARBON DIOXIDE 27.8 mmol/L (21.0-32.0); CHLORIDE - SERUM 106 mmol/L (98-107); GLUCOSE 130 mg/dL (74-106); MAGNESIUM - SERUM 2.5 mg/dL (1.8-2.4); PHOSPHOROUS 3.3 mg/dL (2.5-4.9); POTASSIUM - SERUM 3.7 mmol/L (3.5-5.1); SODIUM 143 mmol/L (136-145); UREA NITROGEN 14 mg/dL (7-18)
[2018-07-13 05:08] LABS: CREATININE - SERUM 0.8 mg/dL (0.6-1.3); eGFR NON AFRICAN AMERICAN > 90 mL/min (90-120)
--- NOTE | 2018-07-13 07:40 | NUR ---
SHIFT REPORT RECEIVED. PT AA&OX4. ON BIPAP AT 55%. HAS 20G PIV ON RADHA WITH MERREM INFUSING AT THIS TIME. PT ASKED TO BE TAKEN OFF BIPAP. PLACED ON 10L HIGH FLOW NASAL CANNULA. LUNGS CLEAR. BS ACTIVE X 4 QUADRANTS. SHIFT ASSESSMENT COMPLETED. MEAL TRAY DELIVERED AND SET UP. ICE WATER PROVIDED. DENIES OTHER NEEDS AT THIS TIME. WILL CONTINUE TO MONITOR.
--- NOTE | 2018-07-13 09:00 | NUR ---
SPOUSE CONCERN THAT PT MIGHT BE ALLERGIC TO THE UPDRAFT BREATHING TREATMENT. PT REPORTING ITCHINGN AT THIS TIME. SPOKE WITH DR. SUNSHINE AND NOTIFIED HIM OF PT'S CONCERNS. HE STATED THAT THE ROCEPHIN IS PROBABLY STILL IN HIS SYSTEM AND MIGHT BE WHAT IT IS STILL CAUSING THE ITCHING AND RASH.
--- NOTE | 2018-07-13 09:15 | NUR ---
AM MEDS GIVEN. SPOUSE AT BEDSIDE. IMODIUM GIVEN. PT REPORTS RASH AND ITCHING. BENADRYL GIVEN PER ORDERS. USED BEDPAN. LARGE, LOOSE, BROWN STOOL NOTED AT THIS TIME. NO FURTHER NEEDS. WILL CONTINUE TO MONITOR.
[2018-07-13 10:20] LABS: FOLATE (FOLIC ACID) - SERUM 11.6 ng/mL (>3.0)
--- NOTE | 2018-07-13 11:00 | NUR ---
MONITORS ON AND WORKING, VITALS STABLE, SEE FLOW SHEET FOR FURTHER DETAILS. WILL CONTINUE TO OBSERVE.
--- NOTE | 2018-07-13 13:00 | NUR ---
NO CHANGES, MONITORS ON AND WORKING, VITALS STABLE, CALL LIGHT WITHIN REACH, WILL CONTINUE TO OBSERVE.
--- NOTE | 2018-07-13 15:00 | NUR ---
NO CHNAGES, SEE FLOW SHEET FOR FURTHER DETAILS. CALL LIGHT WITHIN REACH, WILL CONTINUE TO OBSERVE.
--- NOTE | 2018-07-13 17:00 | NUR ---
PT SITTING UP IN BED EATING DINNER, NO SIGNS/SYMPTOMS OF PAIN OR DISCOMFORT NOTED AT THIS TIME, CALL LIGHT WITHIN REACH, WILL CONTINUE TO OBSERVE.
--- NOTE | 2018-07-13 19:45 | NUR ---
PT RECEIVED WATCHING TV. VSS. PINA PATENT WITH YELLOW URINE. ALERT AND ORIENTED. RIGHT UPPER ARM MIDLINE, PATENT. DENIES PAIN. FRESH ICE WATER PROVIDED. CALL LIGHT IN REACH. WILL CONTINUE TO OBSERVE.
--- NOTE | 2018-07-13 21:05 | NUR ---
PT WITH EX- AND DAUGHTER AT BEDSIDE. RECEIVED SCHEDULED MEDICATIONS PER MAR, NO DIFFICULTY NOTED. NO NEEDS OR CONCERNS MADE KNOWN. CALL LIGHT IN REACH. WILL CONTINUE TO OBSERVE.
--- NOTE | 2018-07-13 21:27 | NUR ---
DR JOHNSON IN TO ASSESS PT. QUESTIONS ANSWERED PRIOR TO HER ENTERING ROOM. PHYSICAN ENTERED ORDERS FOR STOOL, FOR WBC AND CDIFF. D/C'D PROTONIX AND STARTED PEPCID AND CARAFATE.
--- NOTE | 2018-07-13 23:49 | NUR ---
PT WITH EYES OPEN WATCHING TV. REASSESSMENT COMPLETED, SEE FLOW SHEET. WILL CONTINUE TO OBSERVE. CALL LIGHT IN REACH. FRESH WATER GIVEN PER REQUEST.
[2018-07-14] VITALS (23 sets, daily range): BP systolic 130–172; BP diastolic 73–101
--- NOTE | 2018-07-14 01:32 | NUR ---
PT REQUEST ASSIST WITH SUCTION TUBING WHICH WAS CLOGGED. TUBE CLEARED. PT COMPLAINS OF MILD ITCHING TO ARMS, PRN BENYDRL GIVEN. FRESH WATER ALSO PROVIDED.
--- NOTE | 2018-07-14 02:34 | NUR ---
PT PLACED ON BIPAP. SPO2 WOULD GO <92% WHILE SLEEPING.
[2018-07-14 06:37] LABS: CALC OSMOLALITY 279 mosm/kg (275-300); CALCIUM 7.4 mg/dL (8.5-10.1); CARBON DIOXIDE 28.5 mmol/L (21.0-32.0); CHLORIDE - SERUM 105 mmol/L (98-107); CREATININE - SERUM 0.7 mg/dL (0.6-1.3); GLUCOSE 107 mg/dL (74-106); POTASSIUM - SERUM 3.7 mmol/L (3.5-5.1); SODIUM 141 mmol/L (136-145); UREA NITROGEN 11 mg/dL (7-18); VANCOMYCIN - TROUGH 7.8 ug/mL (10.0-20.0); eGFR NON AFRICAN AMERICAN > 90 mL/min (90-120)
[2018-07-14 06:43] LABS: BASOPHILS 0.1 % (0-2); EOSINOPHILS 0.1 % (0-7); HEMATOCRIT 30.9 % (42.0-54.0); HEMOGLOBIN 10.1 g/dL (13.5-17.5); LYMPHOCYTES 7.6 % (15-50); MCH 30.1 pg (26.0-34.0); MCHC 32.7 g/dL (31.0-37.0); MCV 92.2 fL (80.0-100.0); MEAN PLATELET VOLUME 10.3 fL (7.4-10.4); MONOCYTES 5.6 % (2-11); NEUTROPHILS 81.6 % (40-80); PLATELET COUNT 318 10x3/uL (130-400); RBC 3.35 10x6/uL (4.20-6.10); RDW 13.3 % (11.5-14.5); WBC 17.9 10x3/uL (4.8-10.8)
--- NOTE | 2018-07-14 07:00 | NUR ---
PATIENT RESTING IN BED ON HIGH FLOW NC AT 10L WITH STABLE VITAL SIGNS. AWAKE ALERT AND ORIENTED. NO COMMPLAINTS. WILL CONTINUE TO MONITOR
--- NOTE | 2018-07-14 09:00 | NUR ---
PT RESTING IN BED WITH STABLE VS. BROUGHT BREAKFAST FROM [employer]--ATE 100%
--- NOTE | 2018-07-14 09:15 | NUR ---
NUTRITION F/U PT REMAINS IN ISOLATION. REPORTS TOLERATING REG DIET WITH "PRETTY GOOD" PO INTAKE. WILL CONTINUE TO HONOR FOOD PREFERENCES, MONITOR PO INTAKE. RD FOLLOWING
--- NOTE | 2018-07-14 11:00 | NUR ---
RESTING IN BED WITH STABLE VS. TOLERATING HIGH FLOW NC AT 10 LITERS/MIN. IN ROOM.
--- NOTE | 2018-07-14 13:00 | NUR ---
PT ATE 100% LUNCH AND HAD BM ON BSC. TOLERATING HIGH FLOW NC AT 10 LITERS. NO COMPLAINTS. WILL CONTINUE TO MONITOR.
--- NOTE | 2018-07-14 14:00 | NUR ---
HAD LARGE SEMIFORMED BROWN BM ON BSC. NURSE EMPTIED
--- NOTE | 2018-07-14 15:00 | NUR ---
PATIENT RESTING IN BED ON HIGH FLOW NC AT 10 LITERS. VSS.
--- NOTE | 2018-07-14 17:00 | NUR ---
BROUGHT PT DINNER TRAY AND NEW LINENS AND BATH SUPPLIES. GOING TO GIVE BED BATH. STILL ON HIGH FLOW NC AT 10L/MIN AND TOLERATING.
--- NOTE | 2018-07-14 18:14 | NUR ---
PULLED PATIENT UP IN BED. VSS.
--- NOTE | 2018-07-14 18:48 | NUR ---
GAVE INCENTIVE SPIROMETE. BEST SCORE [id number].
[2018-07-15] VITALS (23 sets, daily range): BP systolic 125–158; BP diastolic 70–102
[2018-07-15 06:37] LABS: HEMATOCRIT 33.4 % (42.0-54.0); MCH 30.4 pg (26.0-34.0); MCHC 32.9 g/dL (31.0-37.0); MCV 92.3 fL (80.0-100.0); MEAN PLATELET VOLUME 10.3 fL (7.4-10.4); PLATELET COUNT 381 10x3/uL (130-400); RBC 3.62 10x6/uL (4.20-6.10); RDW 13.3 % (11.5-14.5); WBC 23.3 10x3/uL (4.8-10.8)
[2018-07-15 06:56] LABS: ALBUMIN 1.9 g/dL (3.4-5.0); ALKALINE PHOSPHATASE 89 U/L (46-116); ALT (SGPT) 47 U/L (10-68); BILIRUBIN - TOTAL 0.25 mg/dL (0.2-1.3); CALC OSMOLALITY 280 mosm/kg (275-300); CALCIUM 7.8 mg/dL (8.5-10.1); CARBON DIOXIDE 31.5 mmol/L (21.0-32.0); CHLORIDE - SERUM 103 mmol/L (98-107); CREATININE - SERUM 0.6 mg/dL (0.6-1.3); GLUCOSE 112 mg/dL (74-106); PROTEIN - SERUM 5.6 g/dL (6.4-8.2); SODIUM 141 mmol/L (136-145); UREA NITROGEN 11 mg/dL (7-18); eGFR NON AFRICAN AMERICAN > 90 mL/min (90-120)
[2018-07-15 06:59] LABS: POTASSIUM - SERUM 4.4 mmol/L (3.5-5.1)
--- NOTE | 2018-07-15 07:00 | NUR ---
PT RESTING IN BED ON AWAKE ALERT AND ORIENTED ON HIGH FLOW NC AT 10 LITERS. VSS. WILL CONTINUE TO MONITOR
[2018-07-15 07:38] LABS: ANISOCYTOSIS OCC; LYMPHOCYTES 11 % (15-50); MONOCYTES 9 % (2-11); NEUTROPHILS 62 % (40-80); PLATELET ESTIMATE NORMAL
--- NOTE | 2018-07-15 09:00 | NUR ---
PATIENT ATE 100 % BREAKFAST. VSS. WILL CONTINUE TO MONITOR
--- NOTE | 2018-07-15 11:00 | NUR ---
VSS. IN ROOM. NO COMPLAINTS.
--- NOTE | 2018-07-15 13:00 | NUR ---
VSS. HAD LARGE BM. ON 9L O2 VIA NC. WILL CONTINUE TO MONITOR
--- NOTE | 2018-07-15 15:00 | NUR ---
PT RESTING IN BED C CALL HUANG IN REACH. VSS.
--- NOTE | 2018-07-15 17:00 | NUR ---
EMPTIED PINA AND BSC FROM BM. VSS. NO COMPLAINTS. ATE 100% DINNER TRAY
[2018-07-16] VITALS (23 sets, daily range): BP systolic 117–151; BP diastolic 64–98
[2018-07-16 03:33] LABS: BASOPHILS 0.2 % (0-2); EOSINOPHILS 0 % (0-7); HEMATOCRIT 32.5 % (42.0-54.0); HEMOGLOBIN 10.8 g/dL (13.5-17.5); IMMATURE GRANULOCYTES 8.1 % (0-5); LYMPHOCYTES 5.7 % (15-50); MCH 30.8 pg (26.0-34.0); MCHC 33.2 g/dL (31.0-37.0); MCV 92.6 fL (80.0-100.0); MEAN PLATELET VOLUME 10.9 fL (7.4-10.4); MONOCYTES 5.3 % (2-11); NEUTROPHILS 80.7 % (40-80); PLATELET COUNT 342 10x3/uL (130-400); RBC 3.51 10x6/uL (4.20-6.10); RDW 13.5 % (11.5-14.5); WBC 24.1 10x3/uL (4.8-10.8)
[2018-07-16 03:45] LABS: CALC OSMOLALITY 275 mosm/kg (275-300); CALCIUM 7.8 mg/dL (8.5-10.1); CARBON DIOXIDE 27.5 mmol/L (21.0-32.0); CHLORIDE - SERUM 103 mmol/L (98-107); CREATININE - SERUM 0.7 mg/dL (0.6-1.3); GLUCOSE 135 mg/dL (74-106); POTASSIUM - SERUM 4.8 mmol/L (3.5-5.1); SODIUM 137 mmol/L (136-145); UREA NITROGEN 12 mg/dL (7-18); eGFR NON AFRICAN AMERICAN > 90 mL/min (90-120)
--- NOTE | 2018-07-16 09:23 | NUR ---
NUTRITION F/U CHART REVIEWED. PT REMAINS IN ISOLATION. NURSING REPORTS PT EATING 100% OF RECENT MEALS. WILL CONTINUE TO HONOR FOOD PREFERENCES, MONTIOR PO INTAKE. RD FOLLOWING
--- NOTE | 2018-07-16 19:30 | NUR ---
RECEIVED CARE OF PT, ASSESSMENT PER FLOWSHEET. HR SR ON CM, PT ALERT AND ORIENTED VISITING WITH AT BEDSIDE IN NO SIGNIFICANT DISTRESS. MILD SOB NOTED WITH ACTIVITY, PT DENIES PAIN OR ANY NEEDS AT THIS TIME, PINA CATH PATENT WITH CLEAR YELLOW URINE IN TUBING. CALL LIGHT IN REACH.
--- NOTE | 2018-07-16 21:20 | NUR ---
PT AT BEDSIDE, BOTH DENY ANY NEEDS AT THIS TIME.
--- NOTE | 2018-07-16 23:30 | NUR ---
REASSESSMENT PER FLOWSHEET, NO ACUTE CHANGES NOTED AT THIS TIME. ICE WATER PROVIDED PER REQUEST, REMAINS SR ON CM, 7L HFNC.
[2018-07-17] VITALS (13 sets, daily range): BP systolic 112–140; BP diastolic 7–87
--- NOTE | 2018-07-17 01:20 | NUR ---
PT RESTING IN BED WITH EYES CLOSED, AROUSES EASILY TO VOICE, SR ON CM.
--- NOTE | 2018-07-17 03:30 | NUR ---
REASSESSMENT PER FLOWSHEET, NO ACUTE CHANGES NOTED AT THIS TIME, REMAINS SR ON CM, CALL LIGHT IN REACH, ABLE TO REPOSITION SELF.
[2018-07-17 07:09] LABS: HEMATOCRIT 35.5 % (42.0-54.0); HEMOGLOBIN 11.6 g/dL (13.5-17.5); MCH 30.6 pg (26.0-34.0); MCHC 32.7 g/dL (31.0-37.0); MCV 93.7 fL (80.0-100.0); MEAN PLATELET VOLUME 10.4 fL (7.4-10.4); PLATELET COUNT 453 10x3/uL (130-400); RBC 3.79 10x6/uL (4.20-6.10); RDW 13.9 % (11.5-14.5); WBC 23.8 10x3/uL (4.8-10.8)
[2018-07-17 07:39] LABS: LYMPHOCYTES 11 % (15-50); MONOCYTES 3 % (2-11); NEUTROPHILS 81 % (40-80); PLATELET ESTIMATE INCREASED
[2018-07-17 07:40] LABS: ALBUMIN 2.1 g/dL (3.4-5.0); ALKALINE PHOSPHATASE 101 U/L (46-116); ALT (SGPT) 31 U/L (10-68); BILIRUBIN - TOTAL 0.31 mg/dL (0.2-1.3); CALC OSMOLALITY 275 mosm/kg (275-300); CALCIUM 7.7 mg/dL (8.5-10.1); CARBON DIOXIDE 32.4 mmol/L (21.0-32.0); CHLORIDE - SERUM 101 mmol/L (98-107); CREATININE - SERUM 0.6 mg/dL (0.6-1.3); GLUCOSE 93 mg/dL (74-106); MAGNESIUM - SERUM 2.5 mg/dL (1.8-2.4); POTASSIUM - SERUM 4.1 mmol/L (3.5-5.1); SODIUM 138 mmol/L (136-145); UREA NITROGEN 13 mg/dL (7-18); eGFR NON AFRICAN AMERICAN > 90 mL/min (90-120)
--- NOTE | 2018-07-17 13:39 | NUR ---
MEDICTIONS GIVEN - SEE MAR - PT HAD SLIGHT SOFT STOOL - PT'S SPOSUE TO GIVE BED BATH PER PATEINT'S REQUEST
--- NOTE | 2018-07-17 14:06 | NUR ---
MEDICATION GIVEN - SPOUSE BATING PATIENT - PT VSS PER CONTINOUS CARDIAC MONTIOR -
--- NOTE | 2018-07-17 14:25 | NUR ---
REPORT CALLED TO JOSELYN ALBERT, WILL TRANSFER
--- NOTE | 2018-07-17 14:30 | NUR ---
TRANSFERRED PT VIA W/C WITH ALL PERSONAL BELONGINGS - SPOUSE IN ROOM - ASSISTED PT TO BED WITH STAND BY ASSISTANCE - JOSELYN ALBERT AT BEDSIDE
--- NOTE | 2018-07-17 15:27 | NUR ---
PT RECIEVED FROM ICU. MIDLINE DRESSING CHANGED. SUCTION SET UP PER PT REQUEST. AT BEDSIDE. NO OTHER NEEDS AT THIS TIME.
--- NOTE | 2018-07-17 19:00 | NUR ---
REPORT RECEIVED AND CARE OF PT ASSUMED. PT LYING IN HIGH VELEZ'S POSITION VISITING WITH FAMILY MEMBERS. RIGHT MIDLINE PATENT WITH NS INFUSING AT KVO. O2 IN US VIA NC AT 4L. WILL MONITOR FOR NEEDS.
--- NOTE | 2018-07-17 21:58 | NUR ---
HS MEDICATIONS GIVEN TO INCLUDE BENADRYL PER REQUEST FOR ITCHING. WILL CONTINUE TO MONITOR FOR NEEDS.
--- NOTE | 2018-07-17 23:06 | NUR ---
GAVE PHENERGAN W/ CODEINE FOR COUGH, PER REQUEST, PER PRN ORDER. WILL CONTINUE TO MONITOR FOR NEEDS.
[2018-07-18 00:19] VITALS: BP 115/63
[2018-07-18 04:32] VITALS: BP 106/57
[2018-07-18 08:48] LABS: CALC OSMOLALITY 273 mosm/kg (275-300); CARBON DIOXIDE 28.4 mmol/L (21.0-32.0); CHLORIDE - SERUM 99 mmol/L (98-107); CREATININE - SERUM 0.7 mg/dL (0.6-1.3); GLUCOSE 122 mg/dL (74-106); POTASSIUM - SERUM 4.4 mmol/L (3.5-5.1); SODIUM 136 mmol/L (136-145); UREA NITROGEN 14 mg/dL (7-18); eGFR NON AFRICAN AMERICAN > 90 mL/min (90-120)
[2018-07-18 08:53] LABS: BASOPHILS 0.2 % (0-2); EOSINOPHILS 0 % (0-7); HEMATOCRIT 39.3 % (42.0-54.0); HEMOGLOBIN 12.9 g/dL (13.5-17.5); IMMATURE GRANULOCYTES 5.3 % (0-5); LYMPHOCYTES 4.2 % (15-50); MCH 30.9 pg (26.0-34.0); MCHC 32.8 g/dL (31.0-37.0); MEAN PLATELET VOLUME 12.1 fL (7.4-10.4); MONOCYTES 4.6 % (2-11); NEUTROPHILS 85.7 % (40-80); PLATELET COUNT 214 10x3/uL (130-400); RBC 4.18 10x6/uL (4.20-6.10); RDW 14.3 % (11.5-14.5)
--- NOTE | 2018-07-18 09:37 | NUR ---
PT ALERT X 4. BREATH SOUNDS CLEAR BILAT, 4L O2 PER NC. MIDLINE TO RIGHT UPPER ARM, PATENT, DRESSING CLEAN DRY AND INTACT. PRODUCTIVE COUGH. PT REPORTING NO SOB. BED LOW, CALL LIGHT IN REACH. NO OTHER NEEDS AT THIS TIME.
[2018-07-18 10:10] VITALS: BP 125/74
[2018-07-18 13:05] LABS: APPEARANCE CLEAR (CLEAR); BILIRUBIN NEGATIVE (NEGATIVE); COLOR YELLOW (YELLOW); GLUCOSE NEGATIVE (NEGATIVE); KETONE NEGATIVE (NEGATIVE); NITRITE NEGATIVE (NEGATIVE); PROTEIN NEGATIVE (NEGATIVE); UROBILINOGEN NORMAL (NORMAL)
[2018-07-18 14:23] VITALS: BP 105/63
[2018-07-18 16:00] VITALS: BP 112/63
--- NOTE | 2018-07-18 19:00 | NUR ---
REPORT RECEIVED AND CARE OF PT ASSUMED. PT LYING IN SUPINE POSITION VISITING WITH FAMILY MEMBER. RIGHT MIDLINE PATENT WITH NS INFUSING AT KVO. WILL MONITOR FOR NEEDS.
[2018-07-18 20:00] VITALS: BP 111/69
--- NOTE | 2018-07-18 20:59 | NUR ---
HS MEDICATIONS GIVEN TO INCLUDE QUESTRAN THAT WAS PREVIOUSLY HELD THIS AM...PT REQUSTING NOW DUE TO DIARRHEA. WILL CONTINUE TO MONITOR FOR NEEDS.
[2018-07-19] VITALS: BP 118/75
[2018-07-19 03:00] VITALS: BP 121/69
[2018-07-19 04:02] LABS: HEMATOCRIT 37.8 % (42.0-54.0); HEMOGLOBIN 12.5 g/dL (13.5-17.5); MCH 31.1 pg (26.0-34.0); MCHC 33.1 g/dL (31.0-37.0); MEAN PLATELET VOLUME 10.2 fL (7.4-10.4); PLATELET COUNT 453 10x3/uL (130-400); RBC 4.02 10x6/uL (4.20-6.10); RDW 14.1 % (11.5-14.5); WBC 25.1 10x3/uL (4.8-10.8)
[2018-07-19 04:16] LABS: CALC OSMOLALITY 279 mosm/kg (275-300); CALCIUM 8.1 mg/dL (8.5-10.1); CARBON DIOXIDE 28.7 mmol/L (21.0-32.0); CHLORIDE - SERUM 101 mmol/L (98-107); CREATININE - SERUM 0.7 mg/dL (0.6-1.3); GLUCOSE 116 mg/dL (74-106); POTASSIUM - SERUM 4.6 mmol/L (3.5-5.1); SODIUM 139 mmol/L (136-145); UREA NITROGEN 15 mg/dL (7-18); eGFR NON AFRICAN AMERICAN > 90 mL/min (90-120)
[2018-07-19 04:27] LABS: EOSINOPHILS 1 % (0-7); LYMPHOCYTES 6 % (15-50); MONOCYTES 7 % (2-11); NEUTROPHILS 78 % (40-80); PLATELET ESTIMATE INCREASED
[2018-07-19 09:23] VITALS: BP 124/81
[2018-07-19 13:49] VITALS: BP 107/69
[2018-07-19 18:34] VITALS: BP 108/65
--- NOTE | 2018-07-19 18:45 | NUR ---
I have reviewed this patient and I concur with the Shift Assessment completed by the Licensed Practical Nurse today this shift.
--- NOTE | 2018-07-19 19:50 | NUR ---
LYING IN BED RECEIVING UD AT THIS TIME. REQUESTING COUGH SYRUP BUT NOT TIME YET. REQUESTS KLONOPIN WITH NIGHT TIME MEDS FOR ANXIETY. ORIENTED X4. RESP EVEN AND NONLABORED. BBS CTA BUT DIMINISHED IN LLL. PROD COUGH WITH YELLOW SPUTUM. PT COUGHS AND SUCTIONS SECRETIONS FROM MOUTH. BLIND IN LT EYE. NO O2 IN USE. BRUISE NOTED TO LT AC. NO EDEMA NOTED. AMBULATORY. NS @ 30 ML/HR INFUSING IN RT UPPER ARM MIDLINE WITHOUT DIFF. CL IN REACH.
--- NOTE | 2018-07-19 21:06 | NUR ---
MEDICATED WITH KLONOPIN FOR C/O ANXIETY. CL IN REACH.
[2018-07-19 21:09] VITALS: BP 118/70
--- NOTE | 2018-07-20 01:20 | NUR ---
MEDICATED WITH PHEN WITH CODEINE FOR COUGH. NO DISTRESS. CL IN REACH.
[2018-07-20 05:09] VITALS: BP 129/69
[2018-07-20 06:13] LABS: CALC OSMOLALITY 277 mosm/kg (275-300); CALCIUM 8.5 mg/dL (8.5-10.1); CARBON DIOXIDE 31.5 mmol/L (21.0-32.0); CHLORIDE - SERUM 100 mmol/L (98-107); CREATININE - SERUM 0.7 mg/dL (0.6-1.3); GLUCOSE 129 mg/dL (74-106); POTASSIUM - SERUM 4.6 mmol/L (3.5-5.1); SODIUM 137 mmol/L (136-145); UREA NITROGEN 17 mg/dL (7-18); eGFR NON AFRICAN AMERICAN > 90 mL/min (90-120)
[2018-07-20 06:23] LABS: BASOPHILS 0.2 % (0-2); EOSINOPHILS 0.3 % (0-7); HEMATOCRIT 40.4 % (42.0-54.0); HEMOGLOBIN 13.2 g/dL (13.5-17.5); IMMATURE GRANULOCYTES 5.5 % (0-5); LYMPHOCYTES 9.3 % (15-50); MCH 30.8 pg (26.0-34.0); MCHC 32.7 g/dL (31.0-37.0); MCV 94.2 fL (80.0-100.0); MEAN PLATELET VOLUME 10.4 fL (7.4-10.4); NEUTROPHILS 78.7 % (40-80); RBC 4.29 10x6/uL (4.20-6.10); RDW 14.3 % (11.5-14.5)
[2018-07-20 06:24] LABS: PLATELET COUNT 563 10x3/uL (130-400); WBC 18.7 10x3/uL (4.8-10.8)
[2018-07-20 08:22] VITALS: BP 110/69
--- NOTE | 2018-07-20 11:00 | NUR ---
PT SITTING UP IN BED WITH SPOUSE AT BEDSIDE, CHANGED OUT PT TUBING AND YONKER PER REQUEST. NO NEEDS VOICED, PT FAMILY INQUIRED ON HOW MUCH LONGER PT TO STAY ADVISED TO ASK DR WHEN THEY MAKE ROUNDS, CONTINUE WITH PLAN OF CARE
[2018-07-20 12:21] VITALS: BP 97/60
[2018-07-20 16:30] VITALS: BP 104/62
--- NOTE | 2018-07-20 20:30 | NUR ---
PT RESTING IN BED. ALERT AND ORIENTED. NO SIGNS OF DISTRESS. BREATHING EVEN AND UNLABORED. PT STATES NO PROBLEMS AT THIS TIME. IV SITE RT UPPER ARM MIDLINE. DRESSING CLEAN DRY AND INTACT. NO SIGNS OF INFECTION. LUNG SOUNDS CLEAR IN ALL LOBES. NO LOWER LEG SWELLING PRESENT. WILL CONTINUE PLAN OF CARE. CALL LIGHT IN REACH. BED LOWERED AND LOCKED.
[2018-07-20 21:05] VITALS: BP 132/69
--- NOTE | 2018-07-21 02:54 | NUR ---
I have reviewed this patient and I concur with the Shift Assessment completed by the Licensed Practical Nurse today this shift.
[2018-07-21 04:07] LABS: HEMATOCRIT 39.7 % (42.0-54.0); HEMOGLOBIN 12.9 g/dL (13.5-17.5); MCH 30.6 pg (26.0-34.0); MCHC 32.5 g/dL (31.0-37.0); MCV 94.1 fL (80.0-100.0); MEAN PLATELET VOLUME 10.2 fL (7.4-10.4); PLATELET COUNT 530 10x3/uL (130-400); RBC 4.22 10x6/uL (4.20-6.10); WBC 18.8 10x3/uL (4.8-10.8)
[2018-07-21 04:13] LABS: CALC OSMOLALITY 282 mosm/kg (275-300); CALCIUM 8.3 mg/dL (8.5-10.1); CARBON DIOXIDE 30.6 mmol/L (21.0-32.0); CHLORIDE - SERUM 102 mmol/L (98-107); CREATININE - SERUM 0.6 mg/dL (0.6-1.3); POTASSIUM - SERUM 4.6 mmol/L (3.5-5.1); SODIUM 138 mmol/L (136-145); UREA NITROGEN 19 mg/dL (7-18); eGFR NON AFRICAN AMERICAN > 90 mL/min (90-120)
[2018-07-21 04:14] LABS: GLUCOSE 186 mg/dL (74-106)
[2018-07-21 04:30] LABS: LYMPHOCYTES 11 % (15-50); MONOCYTES 11 % (2-11); NEUTROPHILS 75 % (40-80); PLATELET ESTIMATE INCREASED
[2018-07-21 04:43] VITALS: BP 99/53
[2018-07-21 08:55] VITALS: BP 103/65
[2018-07-21] MEDS ORDERED: FEXOFENADINE H180 MG PO (11:36)
[2018-07-21] MEDS ORDERED: XOPENEX 1.1.25 MG/3 INH ×2 (11:36→14:06)
[2018-07-21] MEDS ORDERED: ATROVENT 0.02%2.5 ML INH ×2 (11:36→14:06)
[2018-07-21] MEDS ORDERED: LISINOPRIL10 MG PO (11:37)
[2018-07-21] MEDS ORDERED: COZAAR50 MG PO (11:37)
[2018-07-21] MEDS ORDERED: PULMICORT0.5 MG/21 UPD (11:38)
[2018-07-21] MEDS ORDERED: FLORAJEN3 CAPS460 MG PO (11:38)
[2018-07-21] MEDS ORDERED: CARAFATE1 G PO (11:39)
[2018-07-21] MEDS ORDERED: PREDNISONE10 MG PO ×2 (11:39→14:06)
[2018-07-21] MEDS ORDERED: PEPCID PO (11:40)
[2018-07-21] MEDS ORDERED: KLONOPIN0.5 MG PO (11:40)
[2018-07-21] MEDS ORDERED: Saline Mist NASAL SP NASAL (11:40)
[2018-07-21] MEDS ORDERED: QUESTRAN PACKET PO (11:40)
--- NOTE | 2018-07-21 12:22 | NUR ---
PATIENT STATES HE WOULD LIKE TO BE REFERRED TO [facility] OR [facility] FOR THERAPY AFTER DISCHARGE.
--- NOTE | 2018-07-21 13:26 | MORECARE ---
CASE MANAGEMENT DISCHARGE SUMMARY PATIENT: KAMILLA IZAGUIRRE UNIT: [id number] ADM DATE: 07/08/18 AGE: 47 : 66 SEX: M ROOM/BED: D.2216 AUTHOR: ELENA,DOC PHYSICIAN: REFERRING PHYSICIAN: TOR GAVIN MD DATE OF SERVICE: 07/21/18 Discharge Plan Patient Name: KAMILLA IZAGUIRRE Facility: [facility]:[place] : 1970 Planned Disposition: Home Anticipated Discharge Date: 07/12/18 Discharge Date: Expected LOS: 4 Initial Reviewer: [email or web address] Initial Review Date: 07/08/2018 Generated: 07/21/18 2:26 pm DCP- Discharge Planning Updated by [email or web address]: Nerissa Hernandez on 07/08/18 5:[address] Patient Name: KAMILLA IZAGUIRRE Admission Status: ER Accout number: [id number] Admission Date: 07-08-2018 : 1970 Admission Diagnosis: Attending: TOR GAVIN Current LOS: 1 Anticipated DC Date: 07-12-2018 Planned Disposition: Home Primary Insurance: [place] PR[place] Discharge Planning Comments: CM met with patient to complete initial dc planning assessment. CM educated patient on the CM role and verbal consent given by patient to complete assessment. Patient lives at home with his and children. He is independent in is care at home. At discharge patient plans to return home with his family and feels this is a safe discharge. CM discussed availability of home health, rehab services, and medical equipment. Patient denied known discharge needs at this time. CM will continue to follow and will assist as needed with dc plans/needs. School Psychometrist: Nerissa Hernandez RN, [facility] DCPIA - Discharge Planning Initial Assessment Updated by [id number]: Nerissa Hernandez on 07/08/18 7:00 pm * Is the patient Alert and Oriented? Yes * How many steps to enter\exit or inside your home? * PCP Dr. Frye * Pharm[facility] [employer] [facility] * Preadmission Environment Home with Family * ADLs Independent * Equipment None * List name and contact numbers for known caregivers / representatives who currently or will assist patient after discharge: Cheyenne Izaguirre - [phone] * Verbal permission to speak to the caregivers and representatives has been obtained from the patient. Yes * Community resources currently utilized None * Additional services required to return to the preadmission environment? No * Can the patient safely return to the preadmission environment? Yes * Has this patient been hospitalized within the prior 30 days at any hospital? No External Providers External Provider: [facility] Next Contact Date: Service Request Date: Service Type: Resolution: Reviewer: Comments: External Provider: Kristofer Next Contact Date: Service Request Date: Service Type: Resolution: Reviewer: Comments: Last DP export: 07/08/18 5:08 pm Patient Name: KAMILLA IZAGUIRRE Page [id number] at 1326 All edits/amendments must be made on the electronic document DICTATION DATE: 07/21/18 1326 OUTREACH AND EDUCATION SOCIAL WORKER: SAGE 07/21/18 1326 RPT#: [id number] DC DATE: STATUS: ADM IN [facility] [address] [place] [address] END OF REPORT
[2018-07-21 13:38] VITALS: BP 109/70
--- NOTE | 2018-07-21 13:42 | MORECARE ---
CASE MANAGEMENT DISCHARGE SUMMARY PATIENT: KAMILLA IZAGUIRRE UNIT: [id number] ADM DATE: 07/08/18 AGE: 47 : 66 SEX: M ROOM/BED: D.2216 AUTHOR: JAZMINE PARKER PHYSICIAN: REFERRING PHYSICIAN: TOR GAVIN MD DATE OF SERVICE: 07/21/18 Discharge Plan Patient Name: KAMILLA IZAGUIRRE Facility: [facility]:[place] : 1970 Planned Disposition: Home Anticipated Discharge Date: 07/12/18 Discharge Date: Expected LOS: 4 Initial Reviewer: [id number] Initial Review Date: 07/08/2018 Generated: 07/21/18 2:42 pm Comments DCP- Discharge Planning Updated by [email or web address]: Deana Ernst on 07/21/18 12:[address] Patient will be discharging home today, with [facility] and Home o2/ nebulizer with [facility]. DIANA signed and placed in chart. I spoke with Shayy at [facility] DCP- Discharge Planning Updated by [email or web address]: Nerissa Hernandez on 07/08/18 5:[address] Patient Name: KAMILLA IZAGUIRRE Admission Status: ER Accout number: [id number] Admission Date: 07-08-2018 : 1970 Admission Diagnosis: Attending: TOR GAVIN Current LOS: 1 Anticipated DC Date: 07-12-2018 Planned Disposition: Home Primary Insurance: [place] PRIVATE OPTIONS [place] Discharge Planning Comments: CM met with patient to complete initial dc planning assessment. CM educated patient on the CM role and verbal consent given by patient to complete assessment. Patient lives at home with his and children. He is independent in is care at home. At discharge patient plans to return home with his family and feels this is a safe discharge. CM discussed availability of home health, rehab services, and medical equipment. Patient denied known discharge needs at this time. CM will continue to follow and will assist as needed with dc plans/needs. Trading Specialist: Nerissa Hernandez RN, [facility] DCPIA - Discharge Planning Initial Assessment Updated by [email or web address]: Nerissa Hernandez on 07/08/18 7:00 pm * Is the patient Alert and Oriented? Yes * How many steps to enter\exit or inside your home? * PCP Dr. Frye * Pharmacy [facility] * Preadmission Environment Home with Family * ADLs Independent * Equipment None * List name and contact numbers for known caregivers / representatives who currently or will assist patient after discharge: Cheyenne Izaguirre - [phone] * Verbal permission to speak to the caregivers and representatives has been obtained from the patient. Yes * Community resources currently utilized None * Additional services required to return to the preadmission environment? No * Can the patient safely return to the preadmission environment? Yes * Has this patient been hospitalized within the prior 30 days at any hospital? No Last DP export: 07/21/18 12:26 p Patient Name: KAMILLA IZAGUIRRE Page [phone] at 1342 All edits/amendments must be made on the electronic document DICTATION DATE: 07/21/18 1341 CHAPERON: SAGE 07/21/18 1341 RPT#: [id number] DC DATE: STATUS: ADM IN [facility] [address] [place] [address] END OF REPORT
--- NOTE | 2018-07-21 13:46 | NUR ---
I have reviewed this patient and I concur with the Shift Assessment completed by the Licensed Practical Nurse today this shift.
--- NOTE | 2018-07-21 14:04 | MORECARE ---
CASE MANAGEMENT DISCHARGE SUMMARY PATIENT: KAMILLA IZAGUIRRE UNIT: [id number] ADM DATE: 07/08/18 AGE: 47 : 66 SEX: M ROOM/BED: D.2216 AUTHOR: ELENA,DOC PHYSICIAN: REFERRING PHYSICIAN: TOR GAVIN MD DATE OF SERVICE: 07/21/18 Discharge Plan Patient Name: KAMILLA IZAGUIRRE Facility: [facility]:[place] : 1970 Planned Disposition: Home Anticipated Discharge Date: 07/12/18 Discharge Date: Expected LOS: 4 Initial Reviewer: [email or web address] Initial Review Date: 07/08/2018 Generated: 07/21/18 3:04 pm Comments DCP- Discharge Planning Updated by [email or web address]: Deana Ernst on 07/21/18 1:[address] [facility] with [facility] here to deliver portable O2 and nebulizer they will deliver the rest of DME to home. DCP- Discharge Planning Updated by [email or web address]: Deana Ernst on 07/21/18 12:[address] Patient will be discharging home today, with [facility] and Home o2/ nebulizer with [facility]. DIANA signed and placed in chart. I spoke with Shayy at [facility] DCP- Discharge Planning Updated by [email or web address]: Nerissa Hernandez on 07/08/18 5:[address] Patient Name: KAMILLA IZAGUIRRE Admission Status: ER Accout number: [id number] Admission Date: 07-08-2018 : 1970 Admission Diagnosis: Attending: TOR GAVIN Current LOS: 1 Anticipated DC Date: 07-12-2018 Planned Disposition: Home [place] Insurance: [place] PRIVATE OPT[place] [facility] Discharge Planning Comments: CM met with patient to complete initial dc planning assessment. CM educated patient on the CM role and verbal consent given by patient to complete assessment. Patient lives at home with his and children. He is independent in is care at home. At discharge patient plans to return home with his family and feels this is a safe discharge. CM discussed availability of home health, rehab services, and medical equipment. Patient denied known discharge needs at this time. CM will continue to follow and will assist as needed with dc plans/needs. Hospice Clinical Supervisor: Nerissa Hernandez RN, [facility] DCPIA - Discharge Planning Initial Assessment Updated by [email or web address]: Nerissa Hernandez on 07/08/18 7:00 pm * Is the patient Alert and Oriented? Yes * How many steps to enter\exit or inside your home? * PCP Dr. Frye * Pharmacy [facility] * Preadmission Environment Home with Family * ADLs Independent * Equipment None * List name and contact numbers for known caregivers / representatives who currently or will assist patient after discharge: Cheyenne Izaguirre - [phone] * Verbal permission to speak to the caregivers and representatives has been obtained from the patient. Yes * Community resources currently utilized None * Additional services required to return to the preadmission environment? No * Can the patient safely return to the preadmission environment? Yes * Has this patient been hospitalized within the prior 30 days at any hospital? No Last DP export: 07/21/18 12:42 p Patient Name: KAMILLA IZAGUIRRE Page [phone] at 1404 All edits/amendments must be made on the electronic document DICTATION DATE: 07/21/18 1404 SEED CUTTER: SAGE 07/21/18 1404 RPT#: [id number] DC DATE: STATUS: ADM IN [facility] [address] [place] [address] END OF REPORT
[2018-07-21 16:28] VITALS: BP 112/70
--- NOTE | 2018-07-21 17:00 | NUR ---
RIGHT UPPER ARM MIDLINE REMOVED INTACT. PATIENT TOLERATED WELL. DISCUSSED DISCHARGE, MEDICATION, FOLLOW-UP AND HOME HEALTH. AWAITING SPOUSE FOR TOOL MAINTENANCE TECHNICIAN. ASKED PATIENT TO CALL WHEN RIDE IS HERE AND HE IS READY SO I CAN GET WHEELCHAIR.
--- NOTE | 2018-07-21 18:24 | NUR ---
PATIENT DISCHARGED HOME VIA WHEELCHAIR BY MYSELF ACCOMPANIED BY FAMILY. ALL BELONGINGS SENT WITH PATIENT AND FAMILY. PATIENT WEARING PORTABLE O2 AT DISCHARGE.
--- NOTE | 2018-07-22 11:12 | MORECARE ---
CASE MANAGEMENT DISCHARGE SUMMARY PATIENT: KAMILLA IZAGUIRRE UNIT: [id number] ADM DATE: 07/08/18 AGE: 47 : 66 SEX: M ROOM/BED: D.2216 AUTHOR: ELENADOC PHYSICIAN: REFERRING PHYSICIAN: TOR GAVIN MD DATE OF SERVICE: 07/22/18 Discharge Plan Patient Name: KAMILLA IZAGUIRRE Facility: [facility]:[place] : 1970 Planned Disposition: Home Anticipated Discharge Date: 07/12/18 Discharge Date: 07/21/2018 Expected LOS: 4 Initial Reviewer: [email or web address] Initial Review Date: 07/08/2018 Generated: 07/22/18 12:12 pm Comments DCP- Discharge Planning Updated by [email or web address]: Deana Ernst on 07/21/18 1:[address] Abdi[facility] with [facility] here to deliver portable O2 and nebulizer they will deliver the rest of DME to home. DCP- Discharge Planning Updated by [email or web address]: Deana Ernst on 07/21/18 12:[address] Patient will be discharging home today, with [facility] home health and Home o2/ nebulizer with [facility]. DIANA signed and placed in chart. I spoke with Shayy at [facility] DCP- Discharge Planning Updated by [email or web address]: Nerissa Hernandez on 07/08/18 5:[address] Patient Name: KAMILLA IZAGUIRRE Admission Status: ER Accout number: [id number] Admission Date: 07-08-2018 : 1970 Admission Diagnosis: Attending: TOR GAVIN Current LOS: 1 Anticipated DC Date: 07-12-2018 Planned Disposition: Home Primary Insurance: [place] PR[employer] [place] Discharge Planning Comments: CM met with patient to complete initial dc planning assessment. CM educated patient on the CM role and verbal consent given by patient to complete assessment. Patient lives at home with his and children. He is independent in is care at home. At discharge patient plans to return home with his family and feels this is a safe discharge. CM discussed availability of home health, rehab services, and medical equipment. Patient denied known discharge needs at this time. CM will continue to follow and will assist as needed with dc plans/needs. Baster Hand: Nerissa Hernandez RN, CCM DCPIA - Discharge Planning Initial Assessment Updated by [email or web address]: Nerissa Hernandez on 07/08/18 7:00 pm * Is the patient Alert and Oriented? Yes * How many steps to enter\exit or inside your home? * PCP Dr. Frye * Pharmacy [facility] * Preadmission Environment Home with Family * ADLs Independent * Equipment None * List name and contact numbers for known caregivers / representatives who currently or will assist patient after discharge: Cheyenne Izaguirre - [phone] * Verbal permission to speak to the caregivers and representatives has been obtained from the patient. Yes * Community resources currently utilized None * Additional services required to return to the preadmission environment? No * Can the patient safely return to the preadmission environment? Yes * Has this patient been hospitalized within the prior 30 days at any hospital? No Last DP export: 07/21/18 1:04 p Patient Name: KAMILLA IZAGUIRRE Page 22137 at 1112 All edits/amendments must be made on the electronic document DICTATION DATE: 07/22/18 1112 MOTH PROOFER: SAGE 07/22/18 1112 RPT#: [id number] DC DATE:07/21/18 STATUS: DIS IN [facility] [address] [place] [address] END OF REPORT
== END 2018-07-21 18:26 | disposition home health service (06) | DRG 177 ==
LOC: D.ER 14:29 → D.M2 18:05 → D.EDHOLD 18:05 → D.ICU 18:05 → D.M2 19:40 → D.ICU 07-10 01:12 → D.MS 07-17 15:08
PROVIDERS: Family Medicine; Internal Medicine Nephrology; Internal Medicine Pulmonary Disease; ADMIT Emergency Medicine; ATTEND Emergency Medicine
PROC: 5A09557 Assistance with Respiratory Ventilation, Greater than 96 Consecutive Hours, Continuous Positive Airway Pressure (ICD-10-PCS; 2018-07-10)
PROC: 05HB33Z Insertion of Infusion Device into Right Basilic Vein, Percutaneous Approach (ICD-10-PCS; principal; 2018-07-13)
PROC: B54MZZA Ultrasonography of Right Upper Extremity Veins, Guidance (ICD-10-PCS; 2018-07-13)
DX: J11.08 Influenza due to unidentified influenza virus with specified pneumonia (principal); J96.01 Acute respiratory failure with hypoxia; J15.6 Pneumonia due to other Gram-negative bacteria; J44.0 Chronic obstructive pulmonary disease with (acute) lower respiratory infection; J98.11 Atelectasis; J44.1 Chronic obstructive pulmonary disease with (acute) exacerbation; J13 Pneumonia due to Streptococcus pneumoniae; I10 Essential (primary) hypertension; E87.6 Hypokalemia; D64.9 Anemia, unspecified; R19.7 Diarrhea, unspecified; Z87.891 Personal history of nicotine dependence; J31.0 Chronic rhinitis

== ENCOUNTER → 2018-10-07 09:59 | Outpatient (CLI) | payer MEDICAID ==
[2018-07-12 10:36] VITALS: BMI 23.9
[~2018-10-07 09:59] MED LIST changes: +ATROVENT 0.02%2.5 ML INH; +CARAFATE1 G PO; +COZAAR50 MG PO; +FLORAJEN3 CAPS460 MG PO; +KLONOPIN0.5 MG PO; +LISINOPRIL10 MG PO; +PEPCID PO; +PREDNISONE10 MG PO; +PULMICORT0.5 MG/21 UPD; +QUESTRAN PACKET PO; +Saline Mist NASAL SP NASAL; +TAMIFLU75 MG PO; +XOPENEX 1.1.25 MG/3 INH
== END | disposition home or self-care (01) ==
LOC: D.CT 09-29 10:30
PROVIDERS: ATTEND Internal Medicine Pulmonary Disease
DX: R93.89 Abnormal findings on diagnostic imaging of other specified body structures (principal)

== ENCOUNTER → 2018-11-16 08:16 | Outpatient (CLI) | payer MEDICAID ==
[2018-07-12 10:36] VITALS: BMI 23.9
== END | disposition home or self-care (01) ==
LOC: D.CT 09-29 10:30 → D.RT 08:16 → D.CT 11-23 10:30 → D.RT 11-23 11:00
PROVIDERS: ATTEND Internal Medicine Pulmonary Disease
DX: R06.09 Other forms of dyspnea (principal)